=== PATIENT | male | born 1980 ===

== ENCOUNTER 2017-11-18 17:32 | Emergency (ER) | payer OTHER ==
[2017-11-18 17:37] VITALS: BP 134/81; PULSE 90; RESP 18; TEMP 98.2; O2SAT 98
[2017-11-18] MEDS ORDERED: Tmp-Smz 800 mg-160 mg DS Tab PO STA (17:48)
[2017-11-18] MEDS ORDERED: Lidocaine 2% Inj (20ml) INFIL ONE (17:48)
--- NOTE | 2017-11-18 17:51 | C.PDOC ---
History Of Present Illness 37 year old male presents to ED with complaints of painful mass to left axilla for 3 days. He reports the area has become larger. He denies any fever or drainage. Time Seen by Provider: 11/18/17 17:44 Chief Complaint (Nursing): Abnormal Skin Integrity History Per: Patient History/Exam Limitations: no limitations Onset/Duration Of Symptoms: Days (3) Current Symptoms Are (Timing): Still Present Location Of Injury: Left: Arm (axilla abscess) Past Medical History Reviewed: Historical Data, Nursing Documentation, Vital Signs Vital Signs: Last Vital Signs Temp 98.2 F 11/18/17 17:36 Pulse 90 11/18/17 17:36 Resp 18 11/18/17 17:36 BP 134/81 11/18/17 17:36 Pulse Ox 98 11/18/17 18:15 - Medical History PMH: No Chronic Diseases Surgical History: No Surg Hx Family History: States: Unknown Family Hx - Social History Hx Alcohol Use: Yes Hx Substance Use: Yes - Immunization History Hx Tetanus Toxoid Vaccination: No Hx Influenza Vaccination: No Hx Pneumococcal Vaccination: No Review Of Systems Except As Marked, All Systems Reviewed And Found Negative. Musculoskeletal: Positive for: Arm Pain (axilla left abscess) Physical Exam - Physical Exam Appears: Non-toxic, No Acute Distress Skin: Warm, Dry, Other (3x4cm tender erythematous fluctuant mass to right lower quadraant of the Left axilla and mild surrounding erythema) Head: Atraumatic, Normacephalic Eye(s): bilateral: EOMI Neck: Normal ROM Chest: Symmetrical Extremity: Normal ROM, No Deformity, No Swelling, Other (see skin) Pulses: Left Radial: Normal Neurological/Psych: Oriented x3, Normal Speech Gait: Steady ED Course And Treatment O2 Sat by Pulse Oximetry: 98 - Incision & Drainage Of Abscess Anesthesia: Lidocaine 2% Prep Used: Betadine Procedure: Incised W/Scalpel Blade#: (11), Drained Pus, Irrigated Cavity W/ Saline, Probed To Break Up Loculations, Packed W/Gauze (1/2 inch ), Cultures Obtained And Sent To Lab Medical Decision Making Medical Decision Making: Impression: Abscess and cellulitis Plan: * Bactrim * I&D Area of erythema was outlined with skin marker. Patient gave verbal consent to I &D of abscess. See procedure note. Patient tolerated well. Dressing applied. Patient instructed on wound care and to return in 2 days for packing removal Disposition Counseled Patient/Family Regarding: Diagnosis, Need For Followup, Rx Given - Disposition Referrals: [facility] [Outside] Disposition: HOME/ ROUTINE Disposition Time: 17:51 Condition: STABLE Additional Instructions: Keep area clean and dry. Change dressing 1-2 times daily. Take antibiotics. Take pain medicine as needed. Please follow up in the ED or with your primary doctor, clinic, or urgent care for packing removal in 2 days. Prescriptions: Cephalexin [cephalexin] 500 mg PO Q12 #14 cap Ibuprofen [Motrin] 600 mg PO Q8 #30 tab Sulfamethoxazole/Trimethoprim [Bactrim DS 800 mg-160 mg] 1 tab PO BID #14 tab Instructions: Abscess Incision and Drainage Forms: [facility] (N[place]ian) - POA Present On Arrival: None - Clinical Impression Clinical Impression: Abscess of axilla, left
[2017-11-18] MEDS ORDERED: Lidocaine 2% MPF (5 ml) Inj ONE (17:53)
[2017-11-18] MEDS ORDERED: Tmp-Smz 800 mg-160 mg DS Tab ONE (17:53)
== END 2017-11-18 18:27 | disposition home or self-care (01) ==
LOC: C.ER 17:32
DX: L02.412 Cutaneous abscess of left axilla (principal)